=== PATIENT | female | born 1940 | race Caucasian/White ===

== ENCOUNTER 2017-10-17 10:15 | Outpatient (CLI) | payer MEDICARE | END 2017-10-17 10:16 | disposition home or self-care (01) | LOC: LAB.F 10:15 | PROVIDERS: ATTEND Internal Medicine | DX: E03.9 Hypothyroidism, unspecified (principal); E11.29 Type 2 diabetes mellitus with other diabetic kidney complication; R80.9 Proteinuria, unspecified | CPT/HCPCS: 36415; 84439; 84443 ==

== ENCOUNTER 2018-11-09 14:32 | Outpatient (CLI) | payer MEDICARE | END 2018-11-09 14:33 | disposition EMS.NT | LOC: EMS 14:32 | PROVIDERS: ATTEND Surgery | DX: T17.920A Food in respiratory tract, part unspecified causing asphyxiation, initial encounter (principal) ==